=== PATIENT | male | born 1945 | race Caucasian/White ===

== ENCOUNTER 2018-05-22 08:49 | Outpatient (CLI) | payer OTHER | END 2018-05-22 10:00 | disposition home or self-care (01) | LOC: NUCLEAR 08:49 | DX: M48.062 Spinal stenosis, lumbar region with neurogenic claudication (principal); M54.12 Radiculopathy, cervical region; M54.5 Low back pain; M79.604 Pain in right leg; M79.605 Pain in left leg; I73.9 Peripheral vascular disease, unspecified ==

== ENCOUNTER 2021-05-16 10:40 | Outpatient (CLI) | payer OTHER | END 2021-05-16 10:50 | disposition home or self-care (01) | LOC: NUCLEAR 10:40 | PROVIDERS: ATTEND General Practice | DX: I70.213 Atherosclerosis of native arteries of extremities with intermittent claudication, bilateral legs (principal); I87.2 Venous insufficiency (chronic) (peripheral) ==

== ENCOUNTER 2021-05-21 08:10 | Outpatient (CLI) | payer OTHER | END 2021-05-21 08:12 | disposition home or self-care (01) | LOC: NUCLEAR 08:10 | PROVIDERS: ATTEND General Practice | DX: I70.213 Atherosclerosis of native arteries of extremities with intermittent claudication, bilateral legs (principal); I87.2 Venous insufficiency (chronic) (peripheral) ==

== ENCOUNTER 2024-02-25 09:39 | Outpatient (CLI) | payer OTHER | END 2024-02-25 09:45 | disposition home or self-care (01) | LOC: SONOGRAMA 09:39 | PROVIDERS: ATTEND Family Medicine | DX: R74.01 Elevation of levels of liver transaminase levels (principal) ==